=== PATIENT | female | born 1930 | race Hispanic/Latino ===

== ENCOUNTER 2017-06-17 00:26 | Observation (INO) | payer MEDICARE ==
--- NOTE | 2017-06-17 00:34 | ED PDOC ---
Arrival/HPI - General Time Seen by Provider: 06/17/17 00:29 Historian: Patient, Family - History of Present Illness Narrative History of Present Illness (Text): 06/17/17 00:30 Porsha Scott is an 85 year old female, whose past medical history includes SVT , hypertension, hyperlipidemia, DVT, osteoarthritis, and spinal stenosis, who presents to the ED accompanied by family complaining of palpitations. Son states patient began feeling weak with a rapid heart rate earlier tonight at 21: 00. Son states he took the patient heart rate at home and noted it to be 165 bpm. Patient took Lopressor at home prior to arrival. Patient states symptoms are similar to previous episode of SVT. Patient denies fever, chills, chest pain, shortness of breath, abdominal pain, nausea, vomiting, diarrhea, urinary symptoms, back pain, neck pain, headache, dizziness, or any other complaints. PMD: Dr. Miriam Vicente Time/Duration: 1-3 hours (21:00) Symptom Course: Unchanged Activities at Onset: Rest, Light Context: Home Past Medical History - Provider Review Nursing Documentation Reviewed: Yes - Tetanus Immunization Tetanus Immunization: Unknown - Cardiac Hx Cardiac Arrhythmia: No Hx Congestive Heart Failure: No Hx Hypertension: Yes Hx Internal Defibrillator: Yes Hx Mitral Valve Prolapse: No Hx Pacemaker: No Hx Peripheral Edema: No - Pulmonary Hx Asthma: No Hx Bronchitis: No Hx Chronic Obstructive Pulmonary Disease (COPD): No Hx Emphysema: No - Neurological Hx Alzheimer's Disease: No HX Cerebrovascular Accident: No Hx Dementia: No Hx Migraine: No Hx Parkinson's Disease: No Hx Seizures: No Hx Transient Ischemic Attacks (TIA): No - HEENT Hx HEENT Disorder: No Hx Blind: No Hx Cataracts: No Hx Deafness: No Hx Difficulty Chewing: No Hx Epistaxis: No Hx Glaucoma: No Hx Macular Degeneration: No - Renal Hx Renal Failure: No - Endocrine/Metabolic Hx Hyperthyroidism: No Hx Hypothyroidism: No - Hematological/Oncological Hx Anemia: Yes Hx Cancer: No Hx Hepatitis A: No Hx Hepatitis B: No Hx Hepatitis C: No - Integumentary Hx Dermatological Disorder: No Hx Basal Cell Carcinoma: No Hx Eczema: No Hx Melanoma: No Hx Psoriasis: No Hx Squamous Cell Carcinoma: No - Musculoskeletal/Rheumatological Hx Arthritis: Yes - Gastrointestinal Hx Crohn's Disease: No Hx Diverticulitis: No Hx Gastroesophageal Reflux: No Hx Gastrointestinal Ulcer: No Hx Liver Failure: No - Genitourinary/Gynecological Hx Genitourinary Disorders: No Hx Hematuria: No Hx Incontinence: No Hx Prostate Problems: No Hx Sexually Transmitted Diseases: No Hx Urinary Tract Infection: No - Psychiatric Hx Depression: Yes Hx Emotional Abuse: No Hx Physical Abuse: No Hx Substance Use: No - Surgical History Hx Orthopedic Surgery: Yes (jean hip replacement) - Suicidal Assessment Feels Threatened In Home Enviroment: No Family/Social History - Physician Review Nursing Documentation Reviewed: Yes Family/Social History: Unknown Family HX Smoking Status: Former Smoker Hx Alcohol Use: No Hx Substance Use: No Allergies/Home Meds Allergies/Adverse Reactions: Allergies aspirin Allergy (Verified 08/30/16 23:23) SWELLING caffeine Allergy (Verified 06/17/17 00:37) SWELLING codeine Allergy (Verified 08/30/16 23:23) SWELLING Penicillins Allergy (Verified 08/30/16 23:23) SWELLING Home Medications: Home Meds Medication Instructions Recorded Confirmed Telmisartan/Hydrochlorothiazid 80 tab PO DAILY 12/18/13 06/17/17 [Micardis Hct 80-12.5 mg Tablet] LORazepam [Ativan] 0.5 mg PO BID 01/03/16 06/17/17 Mirtazapine [Remeron] 30 mg PO HS 01/03/16 06/17/17 Venlafaxine [Effexor XR] 150 mg PO QAM 01/03/16 06/17/17 Metoprolol Succinate [Toprol XL] 25 mg PO DAILY 06/17/17 06/17/17 Review of Systems - Physician Review All systems were reviewed & negative as marked: Yes - Review of Systems Constitutional: Other (+generalized weakness) Eyes: Normal ENT: Normal Respiratory: Normal. absent: SOB Cardiovascular: Palpitations (+rapid heart rate). absent: Chest Pain Gastrointestinal: Normal. absent: Abdominal Pain, Diarrhea, Nausea, Vomiting Genitourinary Female: Normal. absent: Dysuria, Frequency, Hematuria, Urine Output Changes Musculoskeletal: Normal. absent: Back Pain, Neck Pain Skin: Normal. absent: Rash Neurological: Normal. absent: Headache Endocrine: Normal Hemo/Lymphatic: Normal Psychiatric: Normal Physical Exam Vital Signs Reviewed: Yes Vital Signs Temp Pulse Resp BP Pulse Ox 06/17/17 03:17 80 18 128/79 99 06/17/17 00:43 98.5 F 135 H 20 123/60 100 Temperature: Afebrile Blood Pressure: Normal Pulse: Tachycardic Respiratory Rate: Normal Appearance: Positive for: Well-Appearing, Non-Toxic, Comfortable Pain Distress: None Mental Status: Positive for: Alert and Oriented X 3 - Systems Exam Head: Present: Atraumatic, Normocephalic Pupils: Present: PERRL Extroacular Muscles: Present: EOMI Conjunctiva: Present: Normal Mouth: Present: Moist Mucous Membranes Neck: Present: Normal Range of Motion Respiratory/Chest: Present: Clear to Auscultation, Good Air Exchange. No: Respiratory Distress, Accessory Muscle Use Cardiovascular: Present: Tachycardic. No: Murmurs Abdomen: Present: Normal Bowel Sounds. No: Tenderness, Distention, Peritoneal Signs Back: Present: Normal Inspection Upper Extremity: Present: Normal Inspection. No: Cyanosis, Edema Lower Extremity: Present: Normal Inspection. No: Edema Neurological: Present: GCS=15, CN II-XII Intact, Speech Normal Skin: Present: Warm, Dry, Normal Color. No: Rashes Psychiatric: Present: Alert, Oriented x 3, Normal Insight, Normal Concentration Medical Decision Making ED Course and Treatment: 06/17/17 00:30 Impression: 86 year old female complaining of palpitations and generalized weakness. Differential Diagnosis included but are not limited to: SVT Plan: -- EKG -- CXR -- Labs, cardiac enzymes -- Lopressor -- Reassess and disposition Prior Visits: Notes and results from previous visits were reviewed. On 10/24/2016, pt was seen in the Emergency department for palpitations. Pt was admitted to the hospital for SVT. Progress Notes: Reviewed EKG, SVT at 137 bpm. Non-specific ST changes. 06/17/17 02:[address] Castrejon, covering for Dr. Morales, who is aware and agrees with plan. Pt will go to Telemetry observation for SVT. Pt in no acute distress. Discussed results and hospital observation plan with pt and family, who are aware and verbalize understanding. 06/17/17 03:00 Reviewed radiology, Chest X-ray shows no acute processes. - Lab Interpretations Lab Results: 06/17/17 00:42 06/17/17 00:42 Lab Results 06/17/17 00:42: Sodium 135, Potassium 4.3, Chloride 94 L, Carbon Dioxide 26, Anion Gap 19, BUN 14, Creatinine 0.8, Est GFR ( Amer) > 60, Est GFR (Non- Af Amer) > 60, Random Glucose 178 H, Calcium 9.6, Total Bilirubin 0.5, AST 38, ALT 36, Alkaline Phosphatase 99, Lactate Dehydrogenase 568, Total Creatine Kinase 47, Troponin I 0.04 D, Total Protein 7.6, Albumin 4.4, Globulin 3.1, Albumin/Globulin Ratio 1.4 06/17/17 00:42: WBC 10.7 D, RBC 4.81, Hgb 15.2, Hct 44.5, MCV 92.5, MCH 31.6, MCHC 34.2, RDW 13.8, Plt Count 307, MPV 10.2, Gran % 60.7, Lymph % (Auto) 27.4, [place] % (Auto) 9.4 H, Eos % (Auto) 2.1, Baso % (Auto) 0.4, Gran # 6.47, Lymph # 2.9, [place] # 1.0 H, Eos # 0.2, Baso # 0.04 I have reviewed the lab results: Yes - RAD Interpretation Apartment House Manager: ED Physician - EKG Interpretation Interpreted by ED Physician: Yes Type: 12 lead EKG - Medication Orders Current Medication Orders: Acetaminophen (Tylenol 325mg Tab) 650 mg PO Q4H PRN PRN Reason: Pain, Mild (1-3) Clopidogrel Bisulfate (Plavix) 75 mg PO DAILY [facility] Lorazepam (Ativan) 0.5 mg PO BID [facility] PRN Reason: Protocol Last Admin: 06/17/17 18:57 Dose: 0.5 mg Re-Assess: Reassess Psych Meds Document 06/17/17 19:57 KOPPS (Rec: 06/17/17 20:54 KOPPS [id number]) Reassess Psych Med Effective Metoprolol Tartrate (Lopressor) 25 mg PO BID [facility] Last Admin: 06/17/17 18:57 Dose: 25 mg Mirtazapine (Remeron) 30 mg PO HS [facility] Last Admin: 06/17/17 21:36 Dose: 30 mg Venlafaxine HCl (Effexor Xr) 150 mg PO DAILY [facility] Discontinued Medications Acetaminophen (Tylenol 325mg Tab) 650 mg PO STAT STA Stop: 06/17/17 03:17 Last Admin: 06/17/17 03:27 Dose: 650 mg Re-Assess: RAMÓN Pain/Vitals Document 06/17/17 04:26 ST (Rec: 06/17/17 04:26 ST [id number]) Pain Reassessment Is This A Pain ReAssessment? Yes Sleep Is patient sleeping during reassessment? No Presence of Pain Presence of Pain No Adenosine (Adenosine 6 Mg/2 Ml Inj) Confirm Administered Dose 6 mg .ROUTE .STK- MED ONE Stop: 06/17/17 00:42 Last Admin: 06/17/17 01:04 Dose: Clopidogrel Bisulfate (Plavix) 300 mg PO STAT STA Stop: 06/17/17 11:19 Last Admin: 06/17/17 11:39 Dose: 300 mg Enoxaparin Sodium (Lovenox) 70 mg SC STAT STA PRN Reason: Protocol Stop: 06/17/17 11:18 Last Admin: 06/17/17 11:39 Dose: 70 mg Enoxaparin Sodium (Lovenox) 70 mg SC ONCE ONE PRN Reason: Protocol Stop: 06/17/17 23:31 Last Admin: 06/17/17 23:06 Dose: 70 mg Sodium Chloride (Sodium Chloride 0.9%) 500 mls @ 999 mls/hr IV .Q31M STA Stop: 06/17/17 01:20 Last Admin: 06/17/17 01:04 Dose: 999 mls/hr Metoprolol Tartrate (Lopressor) Confirm Administered Dose 5 mg IVP .STK-MED ONE Stop: 06/17/17 00:46 Last Admin: 06/17/17 01:04 Dose: - Scribe Statement The provider has reviewed the documentation as recorded by the Diamante Canales Provider Scribe Attestation: All medical record entries made by the Scribez were at my direction and personally dictated by me. I have reviewed the chart and agree that the record accurately reflects my personal performance of the history, physical exam, medical decision making, and the department course for this patient. I have also personally directed, reviewed, and agree with the discharge instructions and disposition. Disposition/Present on Arrival - Present on Arrival Any Indicators Present on Arrival: No History of DVT/PE: No History of Uncontrolled Diabetes: No Urinary Catheter: No History Surgical Site Infection Following: None - Disposition Have Diagnosis and Disposition been Completed?: Yes Diagnosis: Supraventricular tachycardia Disposition: HOSPITALIZED Disposition Time: 02:21 Condition: GOOD
[2017-06-17 00:37] VITALS: BMI 30.2
[2017-06-17] MEDS ORDERED: Metoprolol 1 mg/ml Inj IVP ONE ×2 (00:45→00:47)
[2017-06-17] MEDS ORDERED: Sodium Chloride 0.9% 500 ML IV STA (00:50)
[2017-06-17 01:30] LABS: BASO # 0.04 K/mm3 (0.0-2.0); BASO % 0.4 % (0.0-3.0); EOS # 0.2 (0.0-0.7); EOS % 2.1 % (1.5-5.0); GRAN # 6.47 (1.4-6.5); GRAN % 60.7 % (50.0-68.0); HEMATOCRIT 44.5 % (36.0-48.0); LYMPH # 2.9 (1.2-3.4); LYMPH % 27.4 % (22.0-35.0); MEAN CELL VOLUME 92.5 fl (80.0-105.0); MEAN CORPUSCULAR HEMOGLOBIN 31.6 pg (25.0-35.0); MEAN CORPUSCULAR HGB CONC 34.2 g/dl (31.0-37.0); MEAN PLATELET VOLUME 10.2 fl (7.0-11.0); MONO % 9.4 % (1.0-6.0); RED CELL DISTRIBUTION WIDTH 13.8 % (11.5-14.5); WHITE BLOOD COUNT 10.7 10^3/ul (4.5-11.0)
[2017-06-17 01:37] LABS: ALB/GLOB RATIO 1.4 (1.1-1.8); ALKALINE PHOSPHATASE 99 U/L (38-133); ALT/SGPT 36 U/L (7-56); AST/SGOT 38 U/L (15-39); BILIRUBIN,TOTAL 0.5 mg/dL (0.2-1.3); BLOOD UREA NITROGEN 14 mg/dL (7-21); CALCIUM 9.6 mg/dL (8.4-10.5); CARBON DIOXIDE 26 mmol/L (21-33); GFR AFRICAN-AMERICAN > 60; GLUCOSE,RANDOM 178 mg/dL (70-110); POTASSIUM 4.3 mmol/L (3.6-5.0); SODIUM 135 mmol/L (132-148); TOTAL PROTEIN 7.6 g/dL (5.8-8.3)
[2017-06-17 01:45] LABS: CHLORIDE 94 mmol/L (98-107)
[2017-06-17 01:48] LABS: TROPONIN I 0.04 ng/mL
[2017-06-17 10:33] LABS: BLOOD UREA NITROGEN 12 mg/dL (7-21); CALCIUM 8.7 mg/dL (8.4-10.5); CARBON DIOXIDE 28 mmol/L (21-33); CHLORIDE 97 mmol/L (98-107); CHOLESTEROL 178 mg/dL (130-200); GFR AFRICAN-AMERICAN > 60; GLUCOSE,RANDOM 181 mg/dL (70-110); MAGNESIUM 1.7 mg/dL (1.7-2.2); PHOSPHOROUS 3.5 mg/dL (2.5-4.5); POTASSIUM 3.6 mmol/L (3.6-5.0); SODIUM 134 mmol/L (132-148)
--- NOTE | 2017-06-17 10:52 | CARD ---
APPROVED REPORT EKG Measurement Heart [id number] CT 226P22 [id number] <Conclusion> Sinus rhythm with 1st degree AV block Nonspecific T wave abnormality Abnormal ECG
--- NOTE | 2017-06-17 10:54 | CARD ---
APPROVED REPORT EKG Measurement Heart [id number] <Conclusion> Supraventricular tachycardia Otherwise normal ECG
[2017-06-17 11:12] LABS: TROPONIN I 0.18 ng/mL
[2017-06-17] MEDS ORDERED: Enoxaparin 80 mg Syringe SC STA (11:17)
[2017-06-17] MEDS ORDERED: Aspirin 325 mg EC Tablets PO STA (11:18)
--- NOTE | 2017-06-17 11:19 | RAD ---
HISTORY: cp COMPARISON: 01/24/2017 FINDINGS: LUNGS: No active pulmonary disease. PLEURA: No significant pleural effusion identified, no pneumothorax apparent. CARDIOVASCULAR: Normal. OSSEOUS STRUCTURES: No significant abnormalities. VISUALIZED UPPER ABDOMEN: Normal. OTHER FINDINGS: None. IMPRESSION: No active disease.
[2017-06-17 17:42] LABS: TROPONIN I 0.12 ng/mL
[2017-06-17 23:21] LABS: TROPONIN I 0.11 ng/mL
[2017-06-17] MEDS ORDERED: Enoxaparin 80 mg Syringe SC ONE (23:30)
--- NOTE | 2017-06-18 00:48 | HP ---
HISTORY OF PRESENT ILLNESS: The patient is an 86-year-old female, came to emergency room because of palpitation. The patient stated around 1:00, she was sleeping and woke up and found that was having palpitation. She called her son who called ambulance and she was brought to emergency room. Denies any fever or chills. No history of nausea or vomiting. No history of hemoptysis, no hematemesis. No chest pain. PAST MEDICAL HISTORY: She has significant past medical history of; 1. Morbid obesity. 2. Hyperlipidemia. 3. History of deep venous thrombosis. 4. Hypertension. 5. Spinal stenosis. 6. Status post defibrillator placement. 7. Chronic anemia. 8. History of depression. PAST SURGICAL HISTORY: Significant for bilateral hip replacement. SOCIAL HISTORY: She used to be heavy smoker in the past. No alcohol use. FAMILY HISTORY: Not relevant. ALLERGIES: SHE IS ALLERGIC TO ASPIRIN, CAFFEINE, CODEINE AND PENICILLIN. MEDICATIONS AT HOME: She is on metoprolol 25 daily, venlafaxine 150 mg q.a.m. She is on Micardis 80/12.5 of hydrochlorothiazide, Remeron 30 mg at bedtime, Ativan 0.5 twice a day. REVIEW OF SYSTEMS: Significant for being tired. No more palpitation and no chest pain. PHYSICAL EXAMINATION GENERAL: She is awake and alert, communicative. VITAL SIGNS: She is afebrile, pulse 65, respirations 20, blood pressure 109/65. LUNGS: Bilateral fair air flow. No rhonchi or crackle. HEART: S1 and S2 audible. ABDOMEN: Soft, nontender. No rebound, no guarding. NEUROLOGICAL: The patient is awake and alert, able to communicate. LABORATORY DATA: WBC is 10.7, hemoglobin 15, hematocrit 44, platelets of 307. Chemistry; sodium 134, potassium 3.6, chloride 97, CO2 of 28, BUN 12, creatinine 0.5, blood sugar of 181, troponin first one was 0.04, followup is 0.18. Her EKG shows sinus rhythm with first-degree AV block and nonspecific T-wave changes. ASSESSMENT: 1. Palpitation, rule out underlying coronary ischemia. 2. Hypertension. 3. Hyperlipidemia. 4. Anxiety disorder. 5. Positive troponin, possible non-ST elevation myocardial infarction. PLAN: Currently, the patient is on beta robert. She is on Plavix. SHE IS ALLERGIC TO ASPIRIN, CANNOT BE GIVEN. Continue to monitor, possible stress test in a.m. Ray Castrejon MD
--- NOTE | 2017-06-18 06:06 | CON ---
ADDENDUM DATE: 06/17/2017 REASON FOR ADDENDUM: I spoke to the daughter, referenced cardiac catheterization tomorrow. The patient's daughter is very much reluctant for having cardiac catheterization. Explained the patient and the daughter risks, benefits and said that if the troponin remains positive, then best things to do cardiac catheterization, but she wanted other test before we go for cardiac catheterization, mentioned the patient had a stress test in the September, it is negative, so definitely needs coronary anatomy, so I explained that we will do followup serial CPK troponin. If the troponin remains positive, suggest cardiac catheterization, but the patient's daughter wanted to be called before cardiac catheterization. We will call and followup serial CPK troponin tentatively. We will put for cardiac catheterization tomorrow and depending upon further troponin, we will reassess and discuss with the daughter. We will keep n.p.o. for now. Raul Hawkins MD
--- NOTE | 2017-06-18 07:23 | CON ---
DATE: 06/18/2017 BRIEF MEDICAL HISTORY: This is an 86-year-old female past medical history significant for hypertension, chronic anemia, depression, history of DVT in the past, history of SVT admitted in 10/23/2016 where the patient had *------* workup was negative. The patient states that she was feeling very weak lethargic. Daughter record the pulse and found to be 160, so brought here. The patient's first EKG shows an SVT, heart rate 140, possibly *------* conduction. Repeat EKG shows normal sinus where the patient received Adenosine 6 mg 2 mL. The patient converted to normal sinus. Denies any chest pain. PAST MEDICAL HISTORY: Significant for hypertension, hyperlipidemia, history of chronic anemia, history of depression, history of DVT in the past, history of SVT admitted in 10/23/2016. PERSONAL HISTORY: Denies any history of smoking, quit 35 years ago, stopped at the age of 50. Denies any history of substance abuse. ALLERGIES: THE PATIENT IS ALLERGIC TO ASPIRIN, PENICILLIN AND CODEINE. MEDICATIONS: At home include Remeron, Effexor, Micardis, Lorazepam, and metoprolol 25 mg daily. REVIEW OF SYSTEMS: As per HPI. Previous cardiac workup as follows: The patient had a stress test on 10/25/2016 that shows essentially normal myocardial perfusion study with ejection fraction 77%. The patient had echocardiography done on 10/25/2016 that shows mild concentric LVH ejection fraction calculated 65%, moderate mitral regurgitation, mild tricuspid regurgitation. PHYSICAL EXAMINATION: VITAL SIGNS: Temperature afebrile, heart rate 65, blood pressure 109/65. HEENT: PERRLA is intact. NECK: Supple. No carotid bruit. No thyromegaly. CHEST: Clear to auscultation. HEART: S1 and S2 regular. ABDOMEN: Soft. EXTREMITIES: Clubbing and cyanosis negative. LABORATORY DATA: Blood workup as follows: WBC 10.7, hemoglobin 15.8, hematocrit 44.5, platelets is 307. Chemistry showed sodium 134, potassium 3.6, chloride 92, carbon dioxide 28, anion gap 13, BUN 12, creatinine 0.5. Troponin 0.04. If EKG first shows SVT, heart rate 137 afebrile with a rate of possibly *------* conduction. Repeat EKG normal sinus, first-degree AV block. IMPRESSION: Supraventricular tachycardia in the past, negative stress test. Mild mitral regurgitation. Readmitted again with supraventricular tachycardia. Rule out underlying coronary artery disease. The patient had a stress test on 10/25/2016 essentially normal. The patient's echocardiography on 10/25/2016 that shows normal LV function, mild mitral regurgitation, mild tricuspid regurgitation, history of hypertension, hyperlipidemia, chronic anemia, no history of deep venous thrombosis. RECOMMENDATION: We will give the Lovenox one dose. Follow up serial CPK and troponin *------* followup. Further recommendation will be made for troponin. If troponin remains negative, we will optimize medical treatment. If the troponin is positive, consider cardiac catheterization. We will follow with you. Thank you Dr. Morales for providing me the opportunity in taking care of Porsha Scott. Raul Hawkins MD
[2017-06-18 07:38] LABS: BASO # 0.03 K/mm3 (0.0-2.0); BASO % 0.6 % (0.0-3.0); EOS # 0.3 (0.0-0.7); GRAN # 2.6 (1.4-6.5); GRAN % 48.1 % (50.0-68.0); HEMATOCRIT 40.1 % (36.0-48.0); LYMPH # 1.9 (1.2-3.4); LYMPH % 35.7 % (22.0-35.0); MEAN CELL VOLUME 94.1 fl (80.0-105.0); MEAN CORPUSCULAR HEMOGLOBIN 29.8 pg (25.0-35.0); MEAN CORPUSCULAR HGB CONC 31.7 g/dl (31.0-37.0); MEAN PLATELET VOLUME 10.2 fl (7.0-11.0); MONO # 0.6 (0.1-0.6); MONO % 10.6 % (1.0-6.0); RED CELL DISTRIBUTION WIDTH 13.9 % (11.5-14.5); WHITE BLOOD COUNT 5.4 10^3/ul (4.5-11.0)
[2017-06-18 07:47] LABS: INR 0.99 (0.93-1.08)
[2017-06-18 08:45] LABS: ALB/GLOB RATIO 1.4 (1.1-1.8); ALKALINE PHOSPHATASE 95 U/L (38-133); ALT/SGPT 37 U/L (7-56); AST/SGOT 28 U/L (15-39); BILIRUBIN,TOTAL 0.1 mg/dL (0.2-1.3); BLOOD UREA NITROGEN 15 mg/dL (7-21); CARBON DIOXIDE 29 mmol/L (21-33); CHLORIDE 101 mmol/L (98-107); GFR AFRICAN-AMERICAN > 60; GLUCOSE,RANDOM 108 mg/dL (70-110); MAGNESIUM 1.7 mg/dL (1.7-2.2); PHOSPHOROUS 3.4 mg/dL (2.5-4.5); POTASSIUM 4.2 mmol/L (3.6-5.0); TOTAL PROTEIN 5.7 g/dL (5.8-8.3)
[2017-06-18 08:47] LABS: SODIUM 140 mmol/L (132-148)
--- NOTE | 2017-06-18 11:03 | PN ---
DATE: 06/18/2017 SUBJECTIVE: The patient has no complaints of any chest pain, shortness of breath or headaches. PHYSICAL EXAMINATION VITAL SIGNS: Temperature is 98.6, pulse is 74, blood pressure 162/77 and respirations 20. GENERAL: The patient is lying in bed, flat, comfortable. HEENT: No oral lesion. Anicteric sclerae. Moist mucosa. NECK: No JVD, adenopathy, or thyromegaly. CARDIOVASCULAR: S1 and S2, regular. No murmurs, rubs, or gallops. LUNGS: Clear to auscultation bilaterally. No wheeze, rales, or rhonchi. ABDOMEN: Bowel sounds are positive, soft, nontender and nondistended. EXTREMITIES: no cyanosis, clubbing or edema. ASSESSMENT: 1. Non-ST elevation myocardial infarction. 2. PENICILLIN ALLERGY. 3. Dyslipidemia. 4. Hypertension. 5. Spinal stenosis. 6. Anxiety. 7. ASPIRIN ALLERGY. PLAN: The patient is currently on Effexor, this will be continued. She is on Plavix for her elevated troponin. She is being offered cardiac cath, but her and her daughter are not sure if they want to proceed. Dr. Hawkins is following the patient. She is not able to get aspirin because of her allergies. She is on Tylenol as needed. Denny Morales MD
[2017-06-18] MEDS: Venlafaxine 75 mg ER Cap PO SCH (11:26)
--- NOTE | 2017-06-18 23:39 | CP.PCM.PN ---
Subjective - Date & Time of Evaluation Date of Evaluation: 06/18/17 Time of Evaluation: 23:39 - Subjective Subjective: Patient was seen at bedside as nurse called and told that her blood pressure is 178/96 , 72 , is asymptomatic. palpitation, svt She has no complaints. Denies head ache, heaviness in the head, lightheadedness, dizziness, chest pain , sob. Medial record was reviewed. This 86 year old woman was admitted with complaint of palpitation. Has PMH of HLD, DVT, HTN, morbid obesity, spinal stenosis, AICD, chronic anemia , depresson. Objective - Vital Signs/Intake and Output Vital Signs (last 24 hours): Temp Pulse Resp BP Pulse Ox 98.4 F 78 18 151/92 H 91 L 06/18/17 17:06 06/18/17 17:46 06/18/17 17:06 06/18/17 17:46 06/18/17 09:00 Intake and Output: 06/18/17 06/19/17 18:59 06:59 Intake Total 720 Output Total 2 Balance 718 - Medications Medications: Current Medications Acetaminophen (Tylenol 325mg Tab) 650 mg PO Q4H PRN PRN Reason: Pain, Mild (1-3) Aspirin (Ecotrin) 81 mg PO DAILY [facility] Last Admin: 06/18/17 11:27 Dose: 81 mg Clopidogrel Bisulfate (Plavix) 75 mg PO DAILY [facility] Last Admin: 06/18/17 09:34 Dose: 75 mg Hydrochlorothiazide (Microzide) 12.5 mg PO DAILY [facility] Last Admin: 06/18/17 11:26 Dose: 12.5 mg Lorazepam (Ativan) 0.5 mg PO BID [facility] PRN Reason: Protocol Last Admin: 06/18/17 17:46 Dose: 0.5 mg Losartan Potassium (Cozaar) 50 mg PO DAILY [facility] Last Admin: 06/18/17 11:27 Dose: 50 mg Metoprolol Tartrate (Lopressor) 25 mg PO BID [facility] Last Admin: 06/18/17 17:46 Dose: 25 mg Mirtazapine (Remeron) 30 mg PO HS [facility] Last Admin: 06/18/17 21:40 Dose: 30 mg Venlafaxine HCl (Effexor Xr) 150 mg PO DAILY [facility] Last Admin: 06/18/17 11:26 Dose: 150 mg - Labs Labs: 06/18/17 07:10 06/18/17 08:21 PT 10.7 Seconds (9.9-11.8) 06/18/17 07:10 INR 0.99 (0.93-1.08) 06/18/17 07:10 - Constitutional Appears: Well, In Acute Distress - Head Exam Head Exam: ATRAUMATIC, NORMAL INSPECTION, NORMOCEPHALIC - Eye Exam Eye Exam: Normal appearance - ENT Exam ENT Exam: Normal External Ear Exam - Neck Exam Neck Exam: Normal Inspection - Respiratory Exam Respiratory Exam: NORMAL BREATHING PATTERN - Cardiovascular Exam Cardiovascular Exam: absent: JVD - GI/Abdominal Exam GI & Abdominal Exam: absent: Distended - Rectal Exam Rectal Exam: Deferred - Extremities Exam Extremities Exam: Normal Inspection - Back Exam Back Exam: NORMAL INSPECTION - Neurological Exam Neurological Exam: Alert, Oriented x3 - Psychiatric Exam Psychiatric exam: Normal Affect, Normal Mood - Skin Skin Exam: Normal Color Assessment and Plan - Assessment and Plan (Free Text) Assessment: Elevated blood pressure reading. HLD. Morbid obesity. HTN. Spinal stenosis. Chronic anemia. S/P AICD. Depression. Plan: Clonididne 0.1 mg PO x 1. Continue present medications.
[2017-06-19 00:01] VITALS: TEMP 97.7; O2SAT 93
--- NOTE | 2017-06-19 01:38 | PN ---
DATE: 06/18/2017 REASON FOR CONSULTATION: Followup SVT, now borderline positive troponin. BRIEF HISTORY: This is an 86-year-old female with a past medical history significant for hypertension, chronic anemia, depression, history of DVT in the past, admitted for SVT on 10/23/____ where the patient had workup done which was negative. The daughter who is a physical therapist found a heart rate of 160, brought him here. Patient with an SVT, given 6 of adenosine,broke it to normal sinus. Patient's troponin is 0.18, so cath was offered as the patient's recent stress exam was negative. Patient was kept n.p.o. but the daughter wanted to call with the troponin result. Next, subsequent troponin 0.12 and 6.11. Patient discussed with brother and they wanted not to proceed for cardiac catheterization, but discharged on medical treatment and follow up in office in 2 weeks and if she develops chest pain, we will consider cardiac catheterization as outpatient. SUBJECTIVE: Sitting on the bed, comfortable. Denies any chest pain, short of breath, or any palpitations. OBJECTIVE: GENERAL: Not in apparent distress, is n.p.o. VITAL SIGNS: Temperature afebrile, heart rate 70, blood pressure 162/77. HEENT: PERRLA. Extraocular muscles intact. NECK: Supple. No carotid bruit. No thyromegaly. CHEST: Clear to auscultation. HEART: S1, S2 regular. ABDOMEN: Soft. EXTREMITIES: Clubbing cyanosis negative. LABORATORY DATA: Blood workup as follows: WBC 5.4, hemoglobin 12.7, hematocrit 40.1, platelets count 217. Chemistry: Shows sodium 140, potassium 4.2, chloride 101, carbon dioxide 29, anion gap 14, BUN 15, creatinine 0.5. Total protein 5.7, albumin 3.3, globulin 1.4. Troponin as follows: First troponin 0.04, next is 0.18, next is trending down to 0.12 and 0.16. IMPRESSION: An 86-year-old female with past medical history of supraventricular tachycardia admitted again with a supraventricular tachycardia, positive troponin 0.18. Recent stress test 10/25/2016 was essentially negative. Echo 10/25/2016 shows concentric left ventricular hypertrophy ejection fraction calculated 65%, moderate mitral regurgitation, mild tricuspid regurgitation. In view of positive troponin, the patient was loaded with Plavix and kept n.p.o. after discussing with her daughter for possible cardiac catheterization, but the patient discussed with brother and they agreed not to proceed for cardiac catheterization but wanted to be treated medically and wanted to take her home tomorrow and if she develops chest pain, will bring her back to office in 2 weeks office visit and then consider stress test as an outpatient. Also discussed the issue of allergy to ASPIRIN though it was leveled all over.. Lengthy discussion done, the patient had GI bleed in intolerance, is not allergy. So told the daughter that we will start aspirin and Plavix one month followed by aspirin alone. The patient agreed. The patient was on Micardis at home but pressure yesterday was low, so we started metoprolol. Now Micardis will be started. PLAN: 1. We will start aspirin and Plavix for 4 weeks. Discharge the patient tomorrow if she remains stable and then after baby aspirin alone after 4 weeks. Metoprolol 25 mg twice. I will resume back Micardis and hydrochlorothiazide the patient was taking at home. Possibly discharge home tomorrow. Office visit in 2 weeks and if the patient is symptomatic, the patient's family agreed we will proceed for cardiac catheterization. We will now discontinue n.p.o. order, resume the diet, take the patient off from the cardiac catheterization list. Thank you, Dr. Vogt for providing an opportunity in taking care of the patient Tyler Story. Raul Hawkins MD cc: Dr. Vogt.
[2017-06-19 06:10] VITALS: RESP 18
[2017-06-19 07:53] LABS: BASO # 0.03 K/mm3 (0.0-2.0); BASO % 0.6 % (0.0-3.0); EOS # 0.2 (0.0-0.7); EOS % 4.5 % (1.5-5.0); GRAN # 2.86 (1.4-6.5); GRAN % 53.9 % (50.0-68.0); HEMATOCRIT 38.4 % (36.0-48.0); LYMPH # 1.6 (1.2-3.4); LYMPH % 30.5 % (22.0-35.0); MEAN CELL VOLUME 93.4 fl (80.0-105.0); MEAN CORPUSCULAR HEMOGLOBIN 29.7 pg (25.0-35.0); MEAN CORPUSCULAR HGB CONC 31.8 g/dl (31.0-37.0); MEAN PLATELET VOLUME 9.7 fl (7.0-11.0); MONO # 0.6 (0.1-0.6); MONO % 10.5 % (1.0-6.0); RED CELL DISTRIBUTION WIDTH 13.6 % (11.5-14.5); WHITE BLOOD COUNT 5.3 10^3/ul (4.5-11.0)
[2017-06-19 07:59] LABS: BLOOD UREA NITROGEN 12 mg/dL (7-21); CALCIUM 8.9 mg/dL (8.4-10.5); CARBON DIOXIDE 32 mmol/L (21-33); CHLORIDE 99 mmol/L (95-110); GFR AFRICAN-AMERICAN > 60; GLUCOSE,RANDOM 106 mg/dL (70-110); SODIUM 138 mmol/L (132-148)
[2017-06-19] MEDS: Venlafaxine 75 mg ER Cap PO SCH (09:42)
[2017-06-19 09:47] VITALS: BP 127/76; PULSE 88
--- NOTE | 2017-06-19 13:19 | PN ---
DATE: 06/19/2017 SUBJECTIVE: The patient denies any chest pain, shortness of breath or any palpitations. OBJECTIVE: GENERAL: Lying flat in the bed, not in apparent distress. Denies any shortness of breath. Denies any palpitations. VITAL SIGNS: As follows, heart rate 88, blood pressure 127/76. HEENT: PERRLA. Extraocular muscles intact. NECK: Supple. No carotid bruits. No thyromegaly. CHEST: Clear to auscultation. HEART: S1 and S2 regular. ABDOMEN: Soft. EXTREMITIES: Clubbing and cyanosis negative. LABORATORY DATA: WBC 5.3, hemoglobin is 12.2, hematocrit 38.4, platelet count 211. Chemistry shows sodium 130, potassium 4, chloride 199, carbon dioxide 32, anion gap of 11, BUN 32, creatinine 0.4. Troponin shows 0.04, 0.18, 0.12, and 0.11. IMPRESSION: An 86-year-old female with the past medical history significant for supraventricular tachycardia, history of deep venous thrombosis in the past, admitted on 10/23/2016 with the workup including stress was negative. The patient was discharged home. Admitted again with the supraventricular tachycardia responded to IV adenosine. First troponin negative 0.04, repeat 0.18 and repeat 0.12, and our trend is 0.11. The patient was scheduled for cardiac catheterization yesterday, but the family, daughter does not want cardiac catheterization. Discussed with the brother and the patient's son. They agreed to be treated medically and if need they can do as an outpatient. The patient was on Micardis and hydrochlorothiazide. Micardis was not forwarded, started losartan here and beta-robert. The patient is stable now. Suggested to continue aspirin, Plavix for 4 weeks and then aspirin alone. Recommendation as mentioned, the patient's daughter does not want, so we will continue aspirin 81 mg, Plavix 75 mg for 4 weeks followed by only aspirin alone. Losartan is continued here, but when the patient goes, will continue back her Micardis and hydrochlorothiazide combination and we will discontinue losartan at home. Continue metoprolol, upon discharge, the patient will be followed up as an outpatient. Thank you, Dr. Vogt for providing an opportunity in taking care of the patient, Tyler Story. Raul Hawkins MD cc: Dr. Morales
--- NOTE | 2017-06-20 03:31 | DS ---
HISTORY OF PRESENT ILLNESS: This is an 86-year-old female who has came into the hospital because of an SVT. The patient was tachycardiac. She was found to have a positive troponin. She was seen by cardiology and offered intervention, but she refused. The patient had a non-ST elevation GA. Dr. Hawkins, the patient's glove brusher spoke to the patient as well as her daughter after consideration and giving the risk and benefits, the patient's family thought that it would be better not to undergo the cardiac catheterization. They did understand this. I did speak to the patient again this morning, she does understand the risk and benefits and the fact that she may have a heart attack that could be life threatening. She was extremely nervous about the procedure, but she does understand that she can change mind and time, and she will have to speak to Dr. Hawkins to undergo catheterization. No headaches or dizziness. No nausea or vomiting. PHYSICAL EXAMINATION: VITAL SIGNS: Temperature is 97.7, pulse is 68, blood pressure is 136/83, and respirations 18. GENERAL: The patient is lying in bed, flat, comfortable. HEENT: No oral lesion. Anicteric sclerae. Moist mucosa. NECK: No JVD, adenopathy, or thyromegaly. CARDIOVASCULAR: S1 and S2, regular. No murmurs, rubs, or gallops. LUNGS: Clear to auscultation bilaterally. No wheeze, rales, or rhonchi. ABDOMEN: Bowel sounds are positive, soft, nontender and nondistended. EXTREMITIES: No cyanosis, clubbing or edema. ASSESSMENT: 1. Non-ST elevation myocardial infarction. 2. PENICILLIN ALLERGY. 3. ASPIRIN ALLERGY. 4. Dyslipidemia. 5. Hypertension. 6. Spinal stenosis. 7. Anxiety. PLAN: The patient is currently comfortable. She had a troponin that peaked at 0.18. She is going to continue with Plavix. SHE IS ALLERGIC TO ASPIRIN. She is on hydrochlorothiazide for her hypertension. She is on Effexor, this will be continued. Dr. Hawkins is following the patient. THE ASPIRIN ALLERGY IS NOT A TRUE ALLERGY, but a side effect, so we will continue the patient on aspirin. This will help reduce her risk of having acute coronary syndrome. She is on losartan for her hypertension. She is going to follow up with Dr. Hawkins. The patient was found to have an elevated blood pressure and was given a different kind of drug last night. CONDITION: Stable. ACTIVITIES: Increase as tolerated. Followup with her primary care doctor and Dr. Hawkins. Denny Morales MD
== END 2017-06-19 14:13 | disposition home or self-care (01) ==
LOC: ED 00:26 → ERH 02:20 → 2RNO 03:31
PROVIDERS: ADMIT Internal Medicine Nephrology; ATTEND Internal Medicine Nephrology
DX: I21.4 Non-ST elevation (NSTEMI) myocardial infarction (principal); I47.1 Supraventricular tachycardia; I10 Essential (primary) hypertension; E78.5 Hyperlipidemia, unspecified; M48.00 Spinal stenosis, site unspecified; F32.9 Major depressive disorder, single episode, unspecified; D64.9 Anemia, unspecified; I08.1 Rheumatic disorders of both mitral and tricuspid valves; F41.9 Anxiety disorder, unspecified; Z96.643 Presence of artificial hip joint, bilateral; E66.01 Morbid (severe) obesity due to excess calories; Z68.30 Body mass index [BMI] 30.0-30.9, adult; Z95.810 Presence of automatic (implantable) cardiac defibrillator; Z86.718 Personal history of other venous thrombosis and embolism; Z87.891 Personal history of nicotine dependence; Z88.0 Allergy status to penicillin; Z88.6 Allergy status to analgesic agent
CPT/HCPCS: 36415; 71010; 80048; 80053; 80061; 82550; 83036; 83615; 83735; 84100; 84443; 84484; 85025; 85610; 93005; 96372; 99285; G0378; J1650; J7040